=== PATIENT | female | born 1995 | race Caucasian/White ===

== ENCOUNTER 2023-04-27 12:58 | Emergency (ER) | payer OTHER ==
[2023-04-27 13:34] LABS: BILIRUBIN,URINE NEGATIVE (NEGATIVE); GLUCOSE, URINE (UA) NEGATIVE (NEGATIVE); KETONES,URINE (UA) NEGATIVE (NEGATIVE); LEUKOCYTE ESTERASE, URINE NEGATIVE (NEGATIVE); NITRITE,URINE NEGATIVE (NEGATIVE); OCCULT BLOOD,URINE MODERATE (NEGATIVE); PROTEIN,URINE NEGATIVE (NEGATIVE); UROBILINOGEN,URINE 0.2 (NORMAL) E.U./dL (NORMAL)
[2023-04-27 13:35] LABS: CLARITY,URINE CLEAR (CLEAR)
[2023-04-27 13:49] LABS: AMORPHOUS SEDIMENT,UR Few /LPF; BACTERIA,URINE Few /HPF (None Seen); RBC,URINE 0-5 /HPF (0-5); SQUAMOUS EPITHELIAL CELL,UR FEW Squamous (<= Few); WBC,URINE 0-3 /HPF (0-5)
[2023-04-27 14:11] LABS: HCG,QUALITATIVE BLOOD NEGATIVE
--- NOTE | 2023-04-27 15:13 | ED Physician Documentation ---
PD HPI FEMALE - Stated complaint Stated Complaint: /SPOTTING - Chief complaint Chief Complaint: Abd Pain - History obtained from History obtained from: Patient - Additional information Additional information: This is a 27-year-old female G1, P0 who presents with vaginal bleeding. The patient believes she is about 4-5 weeks , LMP 03/22/2023. she states that she missed her period and she had a small amount of spotting which she thought was implantation bleeding and she took a test at that time which was positive. She then had no further bleeding up until 2 days ago when she had some increased spotting which has since turned into heavier bleeding with some passage of tissue like substance. Patient states she is using a pad or a tampon but not having to change regularly. She has not bled heavily but it is similar to her menses. She has had some mild lower abdominal cramping with that though the cramping has resolved today. She has not had any dysuria urgency or fr equency, no fever or chills, no abdominal distention. She has not felt dizzy or weak. She was concerned that she may be having a miscarriage. 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 : None HEENT: None Psych: None Musculoskeletal: None Derm: None - Past Surgical History Past Surgical History: No - Present Medications Home Medications: Ambulatory Orders Medication Instructions Recorded Confirmed No Known Home Medications 04/27/23 04/27/23 - Allergies Allergies/Adverse Reactions: Allergies Allergy/AdvReac Type Severity Reaction Status Date / Time No Known Drug Allergies Allergy Verified 04/27/23 13:00 - Social History Does the pt smoke?: No Smoking Status: Never smoker Does the pt drink ETOH?: Yes Does the pt have substance abuse?: No - Immunizations Immunizations are current?: Yes PD ED PE NORMAL - Vitals Vital signs reviewed: Yes - General General: Alert and oriented X 3, No acute distress, Well developed/nourished - Abdomen Abdomen: Normal bowel sounds, Soft, Non tender, Non distended - Back Back: No CVA TTP - Derm Derm: Normal color, Warm and dry Results - Vitals Vitals: Vital Signs - 24 hr 04/27/23 04/27/23 13:01 15:27 Temperature 37.4 C 36.6 C Heart Rate 84 73 Respiratory 16 18 Rate Blood Pressure 128/77 107/64 O2 Saturation 95 98 Oxygen O2 Source Room air - Labs Labs: Laboratory Tests 04/27/23 04/27/23 13:25 13:28 Serum HCG, Qual NEGATIVE Urine Color YELLOW Urine Clarity CLEAR Urine pH 7.0 Ur Specific [place] 1.010 Urine Protein NEGATIVE Urine Glucose (UA) NEGATIVE Urine Ketones NEGATIVE Urine Occult Blood MODERATE H Urine Nitrite NEGATIVE Urine Bilirubin NEGATIVE Urine Urobilinogen 0.2 (NORMAL) Ur Leukocyte Esterase NEGATIVE Urine RBC 0-5 Urine WBC 0-3 Ur Squamous Epith Cells FEW Squamous Amorphous Sediment Few Urine Bacteria Few Ur Microscopic Review INDICATED Urine Culture Comments NOT INDICATED - Rads (name of study) No standard instances Relevant Findings:: Final report received PD Medical Decision Making - ED course Complexity details: reviewed results, considered differential, d/w patient, d/w family ED course: 27-year-old female presented with vaginal bleeding. The patient had a positive home test and was concerned about a miscarriage.Differentials considered included miscarriage, late menses, ectopic . She is well appearing and hemodynamically stable here. test here was negative, urinalysis negative for signs of infection. I did proceed with a pelvic ultrasound to evaluate for possible retained products or any signs of and this was negative. The patient may have had a completed miscarriage or potentially had a late menses. I discussed these findings with the patient and advised that it did not appear that she was at this time and possibly had a completed miscarriage. I recommended that she follow-up with her OB As needed and did anticipate the bleeding to improve in the next couple of days but if she had any heavy bleeding such as greater than 2 pads per hour for 2 consecutive hours or other new concerns to return to the ER. Departure - Departure Disposition: 01 Home, Self Care Clinical Impression: Complete miscarriage Condition: Good Instructions: ED Miscarriage Completed Comments: Your labs and ultrasound do not show signs of active . You likely completed a miscarriage or potentially had a false positive test previously. Please continue follow up with your primary doctor or OB in the next week or two. Forms: PCP List Discharge Date/Time: 04/27/23 15:31
[2023-04-27 15:31] VITALS: BP 107/64; O2SAT 98
--- NOTE | 2023-04-27 15:55 | Ultrasound Report ---
PROCEDURE: Pelvic w/Transvaginal INDICATIONS: pelvic pain, R TECHNIQUE: Real-time scanning was performed of the pelvic organs, with image documentation. Additional endovagi nal scanning was necessary due to incomplete visualization of the adnexal and endometrial structures by transabdominal scanning. COMPARISON: None. FINDINGS: Uterus: Uterus is anteverted and normal in size at 6 x 4.2 x 3.1 cm. The myometrium is homogeneous. The endometrium measures 5 mm in combined thickness. No fibroids. Ovaries: The right ovary measures 3.6 x 2.1 x 1.8 cm, with a calculated ovarian volume of 6 cc. The left ovary measures 2.3 x 1.2 x 0.9 cm, with a calculated ovarian volume of 2 cc. The ovaries have a normal sonographic appearance. Greater than 12 follicles can be seen in each ovary. No adnexal ma sses are seen. No cystic lesions measuring greater than 3 cm. Other: No pathologic free abdominal or pelvic fluid. IMPRESSION: 1. No mass or significant ovarian cysts. 2. Greater than 12 ovarian follicles bilaterally. This finding could be seen in the setting of polycy stic ovarian syndrome. 3. No endometrial thickening. Reviewed by: Jam Donnelly MD on 04/27/2023 3:54 PM PDT Approved by: Jam Donnelly MD on 04/27/2023 3:54 PM PDT Station ID: [id number]
== END 2023-04-27 15:31 | disposition home or self-care (01) ==
LOC: ED 12:58
DX: O03.9 Complete or unspecified spontaneous abortion without complication (principal)
CPT/HCPCS: 36415; 81001; 81003; 84703; 87086; 99283; 99284